=== PATIENT | male | born 1970 | race Caucasian/White ===

== ENCOUNTER 2018-01-04 06:50 | Emergency (ER) ==
[2018-01-04 07:05] VITALS: TEMP 97.4; BMI 24.9
--- NOTE | 2018-01-04 07:37 | ED.PDOC ---
General ED Provider: Dr. SABRINA TREVINO Chief Complaint: Head Laceration Stated Complaint: Head injury: Large PA speaker fell off shelf striking head.Was sleeping in recliner and went to turn alarm off and accidently caused speaker to fall off shelf. Had a forceful blow to top of his head and resulted in some bleeding. No loc. States when he saw the blood he developed nausea and weakness. Time Seen by Physician: 07:15 Mode of Arrival: Walk-In Information Source: Patient Exam Limitations: No limitations Primary Care Provider: BRITTNI TILLMAN Nursing and Triage Documentation Reviewed and Agree: Yes Does patient meet sepsis criteria?: No System Inflammatory Response Syndrome: Not Applicable Sepsis Protocol: For patient's 13 years and over: Temp is 96.8 and below OR 101 and greater Pulse >90 BPM Resp >20/minute Acutely Altered Mental Status Are patient's symptoms suggestive of a new infection, such as: -Pneumonia -Skin, Soft Tissue -Endocarditis -UTI -Bone, Joint Infection -Implantable Device -Acute Abdominal Infection -Wound Infection -Meningitis -Blood Stream Catheter Infection -Unknown Trauma/Injury Complaint Exam - Head Injury Complaint/Exam Location of Pain: Reports: Scalp (Mid Parietal-2 cm laceration horizonal sl gaping ) Mechanism of Injury: Reports: Trauma Onset/Duration: 0600 hrs this morning Symptoms Are: Still present Initial Severity: Severe Current Severity: Moderate Character: Reports: Sharp, Throbbing, Pressure Aggravating: Reports: None Alleviating: Reports: None Associated Signs and Symptoms: Denies: Confusion, Memory loss, Seizure, Epistaxis, Dental malocclusion, Neck pain, Nausea, Vomiting Loss of Consciousness: None Related History: Denies: Similar episode SDH Risk Factors: Present: None, Male, Recent trauma Cervical Spine Injury Risk Factors: Present: None Related Surgical History: Reports: None C-Collar in Place: no Backboard in Place: no Head Injury Findings: Present: Normal findings. Absent: Hemotympanum, CSF rhinorrhea, Cook's sign, Rac[place] eyes, Meningeal signs, Nystagmus Glascow Coma Scale (see protocol): 15 Focal Weakness: Present: None Focal Sensory Loss: Present: None Gait: Normal Gag Reflex Present: Yes Finger to Nose: Normal Rhomberg Test Positive: No Nexus Low Risk Criteria: No post-midline CS tender, No evidence of intoxicat., No Altered LOC, No focal neuro deficit, No distracting injuries Differential Diagnoses: Trauma (BLunt head) Review of Systems - Review Of Systems Constitutional: Reports: No symptoms Eyes: Reports: No symptoms Ears, Nose, Mouth, Throat: Reports: No symptoms Respiratory: Reports: No symptoms Cardiac: Reports: No symptoms GI: Reports: No symptoms : Reports: No symptoms Musculoskeletal: Reports: No symptoms Skin: Reports: No symptoms Neurological: Reports: No symptoms Endocrine: Reports: No symptoms Hematologic/Lymphatic: Reports: No symptoms All Other Systems: Reviewed and Negative Past Medical History - Past Medical History Previously Healthy: Yes Endocrine: Reports: None, Dyslipidemia Cardiovascular: Reports: None, Hypertension Respiratory: Reports: None Hematological: Reports: None Gastrointestinal: Reports: None Genitourinary: Reports: None Neuro/Psych: Reports: None Musculoskeletal: Reports: None, Arthritis, Other (prev neck pain) Cancer: Reports: None - Surgical History General Surgical History: Reports: None - Family History Family History: Reports: None - Social History Smoking Status: Current every day smoker, Heavy tobacco smoker Hx Substance Use: No Alcohol Screening: Occasionally - Immunizations Tetanus Shot up to Date: No (unknown) Physical Exam - Physical Exam Appearance: Well-appearing, Well-nourished Ill-appearing: None Pain Distress: Mild Eyes: YOAV, EOMI, Conjunctiva clear, Right pupil size (YOAV-A) ENT: Ears normal, Nose normal, Oropharynx normal Neck: Supple (NO local palpable abnormalites) Respiratory: Airway patent, Breath sounds clear, Breath sounds equal, Respirations nonlabored Cardiovascular: RRR, Pulses normal, No rub, No murmur GI/: Soft, Nontender, No masses, Bowel sounds normal, No Organomegaly Musculoskeletal: Normal strength, ROM intact, No edema, No calf tenderness Skin: Warm, Dry, Normal color Neurological: Sensation intact, Motor intact, Reflexes intact, Cranial nerves intact, Alert, Oriented Psychiatric: Affect appropriate, Mood appropriate Interpretation - Radiology Interpretation Radiology Interpretation By: Radiologist (Head-no acute intracranial abnormality ; poss chronic sinusitis; cervical C5-6 deg disc nerual foraminal narrowing on Lt-patient asymptomatic) Exam Interpreted: CT Scan (Head-) - EKG Interpretation Time of EKG #1: 07:50 Rate: Normal Rhythm: Sinus Ectopy: None [place]: NL ST Segment: Normal Interpretation: Normal Sinus Rhythm Procedures - Laceration/Wound Repair Scalp Wound Description: Linear, Irregular, Flap, Stellate, Nail-avulsed, Skin tear, Joint proximity, Other Wound Width: 25 mm Wound Depth: 25 mm Wound Explored: Clean Wound Irrigated: Yes Wound Prep: Saline, Hibiclens, Betadine Anesthesia: Lidocaine (4 cc) Wound Repaired With: [place] Number of Will: 6 Sterile Dressing Applied?: Yes Re-Evaluation - Re-Evaluation Time of Re-Evaluation: 08:50 Status: Improved Vital Signs Stable: Yes Pain Level: minimal Appearance: NAD Lungs: Clear Skin: Warm and Dry Neuro: Alert and Oriented X3 CV: Other (scalp wound re evaluated. requires repair) Critical Care Note - Critical Care Note Total Time (mins): 30 Course - Course Hematology/Chemistry: 01/04/18 07:35 01/04/18 07:35 Orders, Labs, Meds: Lab Review 01/04/18 01/04/18 01/04/18 07:30 07:30 07:35 WBC 10.00 RBC 4.48 L Hgb 13.4 L Hct 40.2 L MCV 89.7 MCH 29.9 MCHC 33.3 RDW Coeff of Dim[place] 13.0 Plt Count 264 Immature Gran % (Auto) 0.3 Neut % (Auto) 73.6 Lymph % (Auto) 17.7 [place]ores % (Auto) 6.4 Eos % (Auto) 1.8 Baso % (Auto) 0.2 Immature Gran # (Auto) 0.0 Neut # (Auto) 7.4 H Lymph # (Auto) 1.8 Dolores # (Auto) 0.6 Eos # (Auto) 0.2 Baso # (Auto) 0.0 Sodium Potassium Chloride Carbon Dioxide Anion Gap BUN Creatinine Estimated GFR (MDRD) BUN/Creatinine Ratio Glucose Calcium Total Bilirubin AST ALT Alkaline Phosphatase Total Protein Albumin Globulin Albumin/Globulin Ratio Urine Color Yellow Urine Clarity Clear Urine pH 6.0 Ur Specific [place] 1.025 Urine Protein Negative Urine Glucose (UA) Negative Urine Ketones Negative Urine Blood Trace-intact Urine Nitrite Negative Urine Bilirubin Negative Urine Urobilinogen 0.2 Ur Leukocyte Esterase Negative Urine Microscopic RBC 0-2 Ur Squamous Epith Cells Not present Urine Opiates Screen Negative Ur Oxycodone Screen Negative Urine Methadone Screen Negative Ur Propoxyphene Screen Negative Ur Barbiturates Screen Negative U Tricyclic Antidepress Negative Ur Phencyclidine Scrn Negative Ur Amphetamine Screen Positive U Methamphetamines Scrn Negative U Benzodiazepines Scrn Negative Urine Cocaine Screen Negative U Cannabinoids Screen Negative 01/04/18 07:35 WBC RBC Hgb Hct MCV MCH MCHC RDW Coeff of [place] Plt Count Immature Gran % (Auto) Neut % (Auto) Lymph % (Auto) Dolores % (Auto) Eos % (Auto) Baso % (Auto) Immature Gran # (Auto) Neut # (Auto) Lymph # (Auto) Dolores # (Auto) Eos # (Auto) Baso # (Auto) Sodium 135.2 L Potassium 4.79 Chloride 102.5 Carbon Dioxide 30.9 H Anion Gap 6.59 BUN 16.9 Creatinine 0.88 Estimated GFR (MDRD) 93.00 BUN/Creatinine Ratio 19.20 Glucose 159.8 H Calcium 8.59 Total Bilirubin 0.45 AST 35.0 ALT 25.9 Alkaline Phosphatase 113.1 Total Protein 6.27 L Albumin 3.56 Globulin 2.71 Albumin/Globulin Ratio 1.31 Urine Color Urine Clarity Urine pH Ur Specific [place] Urine Protein Urine Glucose (UA) Urine Ketones Urine Blood Urine Nitrite Urine Bilirubin Urine Urobilinogen Ur Leukocyte Esterase Urine Microscopic RBC Ur Squamous Epith Cells Urine Opiates Screen Ur Oxycodone Screen Urine Methadone Screen Ur Propoxyphene Screen Ur Barbiturates Screen U Tricyclic Antidepress Ur Phencyclidine Scrn Ur Amphetamine Screen U Methamphetamines Scrn U Benzodiazepines Scrn Urine Cocaine Screen U Cannabinoids Screen Orders Category Date Time Status EKG-(ED ONLY) Stat CARDIO 01/04/18 07:29 Completed Vital signs [ED VITAL SIGNS] .ONCE EMERGENCY 01/04/18 07:30 Active Vital signs [ED VITAL SIGNS] Q15M EMERGENCY 01/04/18 07:30 Active CBC W/ AUTO DIFF Stat LAB 01/04/18 07:35 Completed CMP [COMPREHENSIVE METABOLIC PANEL] Stat LAB 01/04/18 07:35 Completed UA [URINALYSIS C & S IF INDICATED] Stat LAB 01/04/18 07:30 Completed URINE DRUG SCREEN (RAPID FOR ED) [DRUG SCREEN, URINE, LAB 01/04/18 07:30 Completed RAPID] Stat Diphth,Pertuss(Acell),Tet Vac [Boostrix] MEDS 01/04/18 09:12 Discontinued 0.5 ml IM .ONCE ONE Lidocaine HCl/Pf [Lidocaine HCl 1% Sdv] MEDS 01/04/18 08:55 Discontinued 5 ml SUBCUT ONCE STA CT CERVICAL SPINE W/O CONTRAST Stat RADS 01/04/18 07:[address] HEAD W/O CONTRAST Stat RADS 01/04/18 07:29 Completed Medications Discontinued Medications Generic Name Dose Route Start Last Admin Trade Name Erlin PRN Reason Stop Dose Admin Diphtheria/Pertussis/Tetanus Vacc 0.5 ml 01/04/18 09:12 01/04/18 09:20 Boostrix IM 01/04/18 09:13 0.5 ml .ONCE ONE Administration Lidocaine HCl 5 ml 01/04/18 08:55 01/04/18 09:19 Lidocaine Hcl 1% Sdv SUBCUT 01/04/18 08:56 5 ml ONCE STA Administration Vital Signs: Temp Pulse Resp BP Pulse Ox 01/04/18 08:06 87 130/80 98 01/04/18 07:58 70 20 128/77 99 01/04/18 06:52 97.4 F L 66 20 90/53 L 98 Departure - Departure Time of Disposition: 09:15 Disposition: HOME SELF-CARE Discharge Problem: Blunt head injury, Laceration of scalp Instructions: Laceration (ED), Head Injury (ED), Staple Care (ED) Condition: Good Pt referred to PMD for follow-up: Yes (1 week) IPMP verified?: No Additional Instructions: May take Tylenol or Advil for pain Review instructions sheets See PCP in 7 days for staple removal Return to ER if other problems occur Allergies/Adverse Reactions: Allergies No Known Allergies Allergy (Verified 01/04/18 07:05) Home Medications: Ambulatory Orders Hydrocodone Bit/Acetaminophen [[place] 5-325] 1 tab PO TID PRN 05/27/13 Losartan Potassium 100 mg PO DAILY 05/27/13 Simvastatin 40 mg PO DAILY 05/27/13 Disposition Discussed With: Patient
[2018-01-04 08:07] VITALS: BP 130/80
[2018-01-04] MEDS ORDERED: LIDOCAINE HCL 1% SDV SUBCUT STA (08:55)
--- NOTE | 2018-01-04 09:01 | CT ---
EXAM: CT Head HISTORY: 03/24 trauma COMPARISON: 08/16/2014 TECHNIQUE: CT head performed without contrast FINDINGS: There is no mass effect, midline shift, or intracranial hemmorhage. Whaley white differenti ation is preserved. There is no extra-axial collection. The ventricles, sulci, and basal cisterns a re patent and symmetric. There is no depressed calvarial fracture. The mastoid air cells are clear. There is paranasal sinus mucosal thickening with marked mucosal thickening of the maxillary sinuses with areas of frothy mucosal thickening left maxillary fluid level, suggesting acute on chronic sinus itis. IMPRESSION: 1. No acute intracranial abnormality. 2. Findings suggesting acute on chronic sinusitis as described.
--- NOTE | 2018-01-04 09:02 | CT ---
EXAM: CT cervical spine without contrast. HISTORY: Blunt head trauma with history of cervical spine degenerative disease COMPARISON: Cervical spine x-ray 08/16/2014 and MRI cervical spine 07/31/2011 TECHNIQUE: Serial axial images of the cervical spine were obtained from the skull base through the l luis apices without contrast. These were viewed in multiple planes. FINDINGS: Vertebral bodies demonstrate no acute compression fracture or subluxation. There is disc space narrowing at C5-C6 with small osteophytes. The facets are unremarkable. The odontoid process is unremarkable. The C1 ring is intact. There is a left mild neural foraminal narrowing noted at C5- C6. No additional central or neural foraminal narrowing is identified. The soft tissues are unremar kable. IMPRESSION: 1. No acute compression fracture or subluxation. 2. Focal degenerative disease most pronounced at C5-C6 with mild left neural foraminal narrowing.
[2018-01-04] MEDS ORDERED: BOOSTRIX IM ONE (09:12)
== END 2018-01-04 09:39 | disposition home or self-care (01) ==
LOC: ED 06:50
DX: S01.01XA Laceration without foreign body of scalp, initial encounter (principal); S09.90XA Unspecified injury of head, initial encounter; W20.8XXA Other cause of strike by thrown, projected or falling object, initial encounter; F17.210 Nicotine dependence, cigarettes, uncomplicated
CPT/HCPCS: 36415; 80053; 80306; 81001; 85025; 90471; 90715; 93005; 93010; 99283